=== PATIENT | male | born 1985 | race African-American/Black ===

== ENCOUNTER 2016-12-03 04:47 | Emergency (ER) | payer SELFPAY ==
[~2016-12-03] VITALS: Ht 172.7 cm; Wt 81.6 kg
[2016-12-03 04:47] VITALS: BP 138/97
[2016-12-03 04:50] VITALS: BP 138/97
--- NOTE | 2016-12-03 04:58 | Emergency Room Report ---
History of Present Illness General Chief Complaint: Altered Level of Consciousness Source: Patient, EMS Present Illness HPI Is a 31-year-old male with a history of drug abuse. He was brought in by EMS for altered mental status. His grandmother called 911 because he was unresponsive in his room. EMS got there as they weren't taking his blood pressure he woke up. He ripped off everything. Patient initially was combative and confused. By time he got here his back to baseline. Denies suicidal thought homicidal thought. Denies any psychosis. Said he felt better. Does not want to stay. Per EMS, grandmother said he has a history of methamphetamine abuse. Allergies: Coded Allergies: No Known Allergies (Unverified , 12/03/16) Patient History Past Medical History: see triage record, old chart reviewed Past Surgical History: none Pertinent Family History: none Social History: Denies: smoking Immunizations: other Reviewed Nursing Documentation: PMH: Agreed, PSxH: Agreed Nursing Documentation-PMH Past Medical History: No Stated History Review of Systems Eye: Denies: blurred vision, eye pain ENT: Denies: ear pain, nose congestion, throat swelling Respiratory: Denies: cough, shortness of breath Cardiovascular: Denies: chest pain, palpitations Gastrointestinal: Denies: abdominal pain, diarrhea, nausea, vomiting Musculoskeletal: Denies: back pain, joint pain Skin: Denies: rash Neurological: Denies: headache, numbness Endocrine: Denies: increased thirst, increased urine Hematologic/Lymphatic: Denies: easy bruising All Other Systems: negative except mentioned in HPI Physical Exam Vital Signs Date Time Temp Pulse Resp B/P Pulse Ox O2 Delivery O2 Flow Rate FiO2 12/03/16 04:29 97.0 78 18 138/97 100 Room Air vitals normal Sp02 EP Interpretation: reviewed, normal General Appearance: well appearing, no apparent distress, alert Head: normocephalic, atraumatic Eyes: bilateral eye EOMI, bilateral eye PERRL ENT: hearing grossly normal, normal pharynx Neck: full range of motion, supple, no meningismus Respiratory: chest non-tender, lungs clear, normal breath sounds Cardiovascular #1: regular rate, rhythm, no murmur Gastrointestinal: normal bowel sounds, non tender, no mass, no organomegaly, no bruit, non-distended Musculoskeletal: back normal, gait/station normal, normal range of motion Psychiatric: mood/affect normal Skin: warm/dry Medical Decision Making Diagnostic Impression: Primary Impression: Methamphetamine abuse Additional Impression: Accidental drug overdose Qualified Codes: T50.901A - Poisoning by unspecified drugs, medicaments and biological substances, accidental (unintentional), initial encounter ER Course Patient presents with a drug overdose and issue of mental status. He is back to baseline here. Denies suicidal thought homicidal thought. He's not very cooperative. He is walking around without a problem. After one hour, he wanted to leave. He is talking normally. No criteria for 5150. Patient refused to sign any before. He left. This patient is a chronic risk of self injury due to poor impulse control, limited coping skills, and judgment intermittently impaired by intoxication. I believe that the available clinical evidence to suggest that these characteristics derived primarily from personality disorder and are likely very stable over time. Hospitalization would likely attenuate risk of self-harm only during intermediate period, without lasting risk reduction. Serious self-harm , while possible, would likely be inadvertent, and because of impulsivity, and foreseeable. For these reasons, I do not believe hospitalization would provide meaningful reduction in risk of self-harm. Last Vital Signs Date Time Temp Pulse Resp B/P Pulse Ox O2 Delivery O2 Flow Rate FiO2 12/03/16 04:47 97.0 73 18 138/97 100 Room Air Status: improved Disposition: HOME, SELF-CARE Condition: Stable TIMO GUTIERREZ M.D. December 03, 2016 04:58
== END 2016-12-03 05:00 | disposition home or self-care (01) ==
LOC: EDBD 04:47 → EMR 05:00
DX: T43.621A Poisoning by amphetamines, accidental (unintentional), initial encounter (principal); Y92.89 Other specified places as the place of occurrence of the external cause; R41.82 Altered mental status, unspecified
CPT/HCPCS: 99283